=== PATIENT | male | born 1995 | race Caucasian/White ===

== ENCOUNTER 2017-11-29 19:01 | Emergency (ER) | payer OTHER ==
[~2017-11-29] VITALS: Ht 170.2 cm; Wt 72.6 kg
--- NOTE | 2017-11-29 19:56 | PHYS DOC ---
Adult General Chief Complaint Chief Complaint: HAND PROBLEM HPI HPI 22-year-old male presents with right hand pain. The patient was changing a tire when his hand slipped and he punched his right second and third digit into the asphalt. He has a small abrasion with minimal bleeding over the second metacarpal to plalanx joint. He had immediate pain and swelling. It it has continued to hurt all day and the swelling is not improved. The pain is 6 out of 10. He is concerned for fracture. He denies any other injuries or complaints. Review of Systems Review of Systems Constitutional: Denies fever or chills [] Eyes: Denies change in visual acuity, redness, or eye pain [] HENT: Denies nasal congestion or sore throat [] Respiratory: Denies cough or shortness of breath [] Cardiovascular: No additional information not addressed in HPI [] GI: Denies abdominal pain, nausea, vomiting, bloody stools or diarrhea [] : Denies dysuria or hematuria [] Musculoskeletal: Right hand pain[] Integument: Denies rash or skin lesions [] Neurologic: Denies headache, focal weakness or sensory changes [] Endocrine: Denies polyuria or polydipsia [] All other systems were reviewed and found to be within normal limits, except as documented in this note. Physical Exam Physical Exam Constitutional: Well developed, well nourished, no acute distress, non-toxic appearance. [] HENT: Normocephalic, atraumatic, bilateral external ears normal, oropharynx moist, no oral exudates, nose normal. [] Eyes: PERRLA, EOMI, conjunctiva normal, no discharge. [] Neck: Normal range of motion, no tenderness, supple, no stridor. [] Cardiovascular:Heart rate regular rhythm, no murmur [] Lungs & Thorax: Bilateral breath sounds clear to auscultation [] Abdomen: Bowel sounds normal, soft, no tenderness, no masses, no pulsatile masses. [] Skin: Warm, dry, no erythema, no rash. [] Back: No tenderness, no CVA tenderness. [] Extremities: Swelling of the right hand over the second metacarpal. Abrasion with formed scab in this location. Neurovascularly intact. Pain with ROM testing.[] Neurologic: Alert and oriented X 3, normal motor function, normal sensory function, no focal deficits noted. [] Psychologic: Affect normal, judgement normal, mood normal. [] EKG EKG [] Radiology/Procedures Radiology/Procedures [] Impressions: Right hand 3 views 11/29/2017. Reason for exam: Pain after injury this morning. Laceration. No fracture or dislocation is seen. There is no apparent foreign body. IMPRESSION: No apparent acute abnormality. Electronically signed by: Manoj Martinez Jr., MD (11/29/2017 8:12 PM) [facility] DICTATED AND SIGNED BY: MANOJ MARTINEZ Jr, MD DATE: 11/29/172009 CC: CT MCNEAL DO; PCP,DACIA ~ Course & Med Decision Making Course & Med Decision Making Pertinent Labs and Imaging studies reviewed. (See chart for details) The patient's x-rays negative for fracture. He does have some surrounding erythema with the laceration, I will give him Keflex prophylaxis since it was a dirty environment where he sustained the wound. [] Dragon Disclaimer Dragon Disclaimer This electronic medical record was generated, in whole or in part, using a voice recognition dictation system. Departure Departure: Referrals: PCP,DACIA (PCP) CT MCNEAL DO Nov 29, 2017 19:56
--- NOTE | 2017-11-29 20:16 | RAD ---
Right hand 3 views 11/29/2017. Reason for exam: Pain after injury this morning. Laceration. No fracture or dislocation is seen. There is no apparent foreign body. IMPRESSION: No apparent acute abnormality. Electronically signed by: Manoj Oseguera Jr., MD (11/29/2017 8:12 PM) [facility]
[2017-11-29] MEDS ORDERED: CEPH-264 PO (20:25)
[2017-11-29 20:30] VITALS: BP 139/62
[2017-11-29] MEDS ORDERED: CEPHALEXIN 250 MG CAPSULE PO ONE (20:30)
[2017-11-29] MEDS ORDERED: NAPROXEN 500 MG TABLET PO ONE (20:30)
== END 2017-11-29 20:40 | disposition home or self-care (01) ==
LOC: ER 19:01
DX: S61.210A Laceration without foreign body of right index finger without damage to nail, initial encounter (principal); W22.8XXA Striking against or struck by other objects, initial encounter; Y93.89 Activity, other specified; Y92.89 Other specified places as the place of occurrence of the external cause; Y99.8 Other external cause status
CPT/HCPCS: 73130; 99284

== ENCOUNTER 2019-12-08 11:59 | Emergency (ER) | payer OTHER ==
[~2019-12-08] VITALS: Ht 175.3 cm; Wt 79.5 kg
[~2019-12-08 11:59] MED LIST: CEPH-264 PO
--- NOTE | 2019-12-08 12:24 | PHYS DOC ---
Past History Past Medical History: No Pertinent History Past Surgical History: No Surgical History Alcohol Use: Rarely Drug Use: None General Adult EDM: Chief Complaint: SORE THROAT HPI: HPI: 24-year-old male past medical history of tobacco dependence presents the ED with complaints of sore throat for the past 6 days, left tonsil more painful than right. He was seen in urgent care clinic 3 days ago and was called back, covid test was negative, strep was negative. Was not started on any antibiotics by urgent care clinic. States he had a oral fever of 101.2 yesterday. C/o painful swallowing and left anterior neck fullness. ROS: Denies associated headache, neck stiffness, dyspnea, hemoptysis, orthopnea, chest pain or pressure, nausea, vomiting, diarrhea, abdominal pain, back pain, drooling, back pain, earache, trismus, raised tongue, drooling. Review of Systems: Review of Systems: Constitutional: Denies fever or chills Eyes: Denies change in visual acuity HENT: Denies nasal congestion or sore throat Respiratory: Denies cough or shortness of breath Cardiovascular: Denies chest pain or edema GI: Denies abdominal pain, nausea, vomiting, bloody stools or diarrhea : Denies dysuria Musculoskeletal: Denies back pain or joint pain Integument: Denies rash Neurologic: Denies headache, focal weakness or sensory changes Endocrine: Denies polyuria or polydipsia Lymphatic: Denies swollen glands Psychiatric: Denies depression or anxiety Allergies: Allergies: Allergies Coded Allergies Type Severity Reaction Last Updated Verified No Known Drug Allergies 11/29/17 No Physical Exam: PE: Constitutional: Well developed, well nourished, no acute distress, non-toxic appearance. [] HENT: Normocephalic, atraumatic, bilateral external ears normal, oropharynx bl exudates and erythema with large 2x1.5cm lefty tonsillith vs abscess, uvula midline, nose normal. [] no brawny texture to the floor of mouth or raise tongue Eyes: EOMI, conjunctiva normal, no discharge. [] Neck: Normal range of motion, no tenderness, supple, no stridor. [] Cardiovascular:Heart rate regular rhythm, no murmur [] Lungs & Thorax: Bilateral breath sounds clear to auscultation, no drooling/stridor/tripod positioning, Abdomen: Bowel sounds normal, soft, no tenderness, no masses, no pulsatile masses. [] Skin: Warm, dry, no erythema, no rash. [] Back: No tenderness, no CVA tenderness. [] Extremities: No tenderness, no cyanosis, no clubbing, ROM intact, no edema. [] Neurologic: Alert and oriented X 3, normal motor function, normal sensory function, no focal deficits noted. [] Psychologic: Affect normal, judgement normal, mood normal. [] EKG: EKG: [] Radiology/Procedures: Radiology/Procedures: IMAGING REPORT Signed PATIENT: MESSI STRICKLAND LACCOUNT: [id number] : 1995 LOCATION: ER AGE: 24 SEX: M EXAM STATUS: REG ER ORD. PHYSICIAN: RULA ESCAMILLA DO REASON: TONSIL SWELLING PROCEDURE: CT SOFT TISSUE NECK W/CONTRAST CT SOFT TISSUE NECK W/CONTRAST DATE: 12/08/2019 12:00 AM INDICATION: Reason: TONSIL SWELLING / Spl. Instructions: / History: TECHNIQUE: Axial computed tomography of the neck with intravenous contrast according to the standard neck protocol. 70 cc of iodinated contrast was administered intravenously. One or more of the following dose reduction techniques were utilized: Automated exposure control (AEC), Adjustment of mA and/or kV according to patient size, Use of iterative reconstruction technique such as ASiR, CT scan done according to ALARA and image gently/image wisely COMPARISON: None. FINDINGS: Marked enlargement of the left greater than right palatine tonsils with peripherally enhancing low-attenuation region within the left palatine tonsil measuring 1.8 x 1.4 x 1.4 cm. Moderate narrowing of the oropharynx. Enlarged bilateral cervical lymph nodes. The parotid, submandibular, and thyroid glands are normal. The muscles of the neck are normal. Vessels of the neck demonstrate normal course, caliber, and enhancement. The visualized aerodigestive tract is normal. The visualized posterior fossa and brain is unremarkable. The visualized orbits and paranasal sinuses are normal. The cervical spine is normal. The visualized lung apices are clear. IMPRESSION: 1. Enlargement of the left greater than right palatine tonsils with 1.8 cm low-attenuation peripherally enhancing region on the left concerning for abscess. 2. Bilateral cervical lymphadenopathy, likely reactive. 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 Topical benzocaine sprayed and local anesthesia w/1% lidocaine to left tonsil. I&D with aspiration performed w/18G needle, 1 attempt at superior, middle and inferior aspect of left tonsillar (respectfully-3 attempts total) with no purulent material expressed-did not go deeper than 1cm. Alligator forceps removed 2-3 cm granulation white tissue over lateral left tonsil- attempted to make in an incision with 18 G but no material was expressed.The p atients tetanus status is UTD. The patient tolerated the procedure Complications: Pain Course & Med Decision Making: Course & Med Decision Making Pertinent Labs and Imaging studies reviewed. 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 Rapid strep and mono screen are negative. IV fluids, unasyn and dexamethasone given in ED. Patient n.p.o.. Transferred to [facility] for ENT consultation and admission for IV antibiotics. Patient agrees with this plan was stable at time of transfer. Differential includes moses's angina, peritonsillar abscess, retropharyngeal abscess, epiglottitis, bacterial tracheitis, uvulitis, sepsis, mastoiditis, traumatic injury, I have spoken with the patient and/or caregivers. I have explained the patient's condition, diagnosis and treatment plan based on the information available to me at this time. I have answered the patient's and/or caregivers questions and answered any concerns. The patient and/or caregivers have as good an understanding of the patient's diagnosis, condition and treatment plan as can be expected at this point. The patient has been stabilized within the capability of the emergency department. The patient will be transported for further care and management or will be moved to an observation or inpatient service. I have communicated with the staff or medical practitioner taking over this patient's care. Dragon Disclaimer: Dragon Disclaimer: This electronic medical record was generated, in whole or in part, using a voice recognition dictation system. Departure Departure: Impression: Primary Impression: Sepsis Additional Impression: Peritonsillar abscess Disposition: ADMITTED INPATIENT (Accepted transfer to [facility], Dr. Cary) Condition: STABLE Referrals: PCP,NO (PCP) Justification of Admission: Justification of Admission: Justification of Admission Dx: No Sepsis: Infection RULA ESCAMILLA DO Dec 08, 2019 12:24
[2019-12-08] MEDS ORDERED: AMPICILLIN/SULBACTAM 3 GM in IV NORMAL SALINE 100ML 100 ML IV ONE (12:45)
[2019-12-08] MEDS ORDERED: IOHEXOL 300 MG/ML 75 ML VIAL. IV ONE (12:45)
[2019-12-08] MEDS ORDERED: BENZOCAINE ONE 20% MUCOSAL SPRAY. MM (13:10)
[2019-12-08 13:18] LABS: CALCIUM 9.4 mg/dL (8.5-10.1); CREATININE 1.1 mg/dL (0.7-1.3); GFR 83.7; POTASSIUM 4.1 mmol/L (3.5-5.1)
--- NOTE | 2019-12-08 13:18 | RAD ---
CT SOFT TISSUE NECK W/CONTRAST DATE: 12/08/2019 12:00 AM INDICATION: Reason: TONSIL SWELLING / Spl. Instructions: / History: TECHNIQUE: Axial computed tomography of the neck with intravenous contrast according to the standard neck protocol. 70 cc of iodinated contrast was administered intravenously. One or more of the following dose reduction techniques were utilized: Automated exposure control (AEC), Adjustment of mA and/or kV according to patient size, Use of iterative reconstruction technique such as ASiR, CT scan done according to ALARA and image gently/image wisely COMPARISON: None. FINDINGS: Marked enlargement of the left greater than right palatine tonsils with peripherally enhancing low-attenuation region within the left palatine tonsil measuring 1.8 x 1.4 x 1.4 cm. Moderate narrowing of the oropharynx. Enlarged bilateral cervical lymph nodes. The parotid, submandibular, and thyroid glands are normal. The muscles of the neck are normal. Vessels of the neck demonstrate normal course, caliber, and enhancement. The visualized aerodigestive tract is normal. The visualized posterior fossa and brain is unremarkable. The visualized orbits and paranasal sinuses are normal. The cervical spine is normal. The visualized lung apices are clear. IMPRESSION: 1. Enlargement of the left greater than right palatine tonsils with 1.8 cm low-attenuation peripherally enhancing region on the left concerning for abscess. 2. Bilateral cervical lymphadenopathy, likely reactive. Electronically signed by: Octaviano Dyer MD (12/08/2019 1:15 PM) [id number]
[2019-12-08 13:19] LABS: BASO % 0 % (0-3); EOS # 0.1 x10^3/uL (0.0-0.7); EOS % 0 % (0-3); HEMATOCRIT 48.9 % (39.0-53.0); HEMOGLOBIN 16.5 g/dL (13.0-17.5); LYMPH % 5 % (24-48); MEAN CORPUSCULAR HEMOGLOBIN 33 pg (25-35); MEAN CORPUSCULAR HGB CONC 34 g/dL (31-37); MEAN CORPUSCULAR VOLUME 97 fL (79-100); MONO % 11 % (0-9); NEUT # 15.7 x10^3uL (1.8-7.7); NEUT % 84 % (31-73); PLATELET COUNT 282 x10^3/uL (140-400); RED BLOOD COUNT 5.03 x10^6/uL (4.30-5.70); WHITE BLOOD COUNT 18.7 x10^3/uL (4.0-11.0)
[2019-12-08 13:21] LABS: MONONUCLEOSIS PATIENT NEGATIVE (NEGATIVE)
[2019-12-08 13:42] LABS: % BANDS 14 % (0-9); % LYMPHS 3 % (24-48); % METAS 1 % (0-0); % MONOS 10 % (0-10); % SEGS 72 % (35-66)
[2019-12-08] MEDS ORDERED: KETAMINE HCL 500 MG/10 ML VIAL. ONE (13:42)
[2019-12-08 13:46] LABS: PLT ESTIMATE ADEQUATE (ADEQUATE); TOXIC GRANULATION PRESENT; TOXIC VACUOLATION PRESENT
[2019-12-08] MEDS ORDERED: KETAMINE HCL IN NACL, ISO-OSM 50 MG/5 ML SYRINGE IV ONE (14:00)
[2019-12-08] MEDS ORDERED: IV NORMAL SALINE 1,000ML 1,000 ML IV ONE ×2 (15:00)
[2019-12-08] MEDS ORDERED: DEXAMETHASONE 4 MG TABLET PO ONE (16:30)
[2019-12-08] MEDS ORDERED: HYDROmorphone PF 1 MG/ML DISP.SYRIN IV ONE ×2 (16:30→18:00)
[2019-12-08] MEDS ORDERED: DEXAMETHASONE SOD PHOS 10 MG/ML VIAL. ONE (16:33)
[2019-12-08] MEDS ORDERED: DEXAMETHASONE SOD PHOS 10 MG/ML VIAL. IV ONE (16:45)
[2019-12-08 16:54] VITALS: BP 115/70
== END 2019-12-08 17:50 | disposition other institution (70) ==
LOC: ER 11:59
DX: A41.9 Sepsis, unspecified organism (principal); J36 Peritonsillar abscess; Z87.891 Personal history of nicotine dependence
CPT/HCPCS: 36415; 42700; 70491; 80048; 85007; 85025; 86308; 87070; 87880; 96365; 96375; 96376; 99285; J0295; J1100; J1170; J3010; J7030; Q9967; 10021; 96360

== ENCOUNTER 2021-04-01 10:06 | Emergency (ER) | payer OTHER ==
[~2021-04-01] VITALS: Ht 175.3 cm; Wt 80.0 kg
[2021-04-01] MEDS ORDERED: IBUPROFEN 600 MG TABLET. PO ONE (10:45)
--- NOTE | 2021-04-01 11:05 | PHYS DOC ---
Past History Past Medical History: No Pertinent History (JARED GARCIA APRN) Past Surgical History: Tonsillectomy (JARED GARCIA APRN) Additional Smoking Information: 1/2 PACK Alcohol Use: Occasionally Drug Use: None (JARED GARCIA APRN) Adult General Chief Complaint Chief Complaint: KNEE INJURY HPI HPI Patient is a 26-year-old male who presents emergency department complaining of right knee pain, patient reports yesterday at approximately noon he was running when he stepped into a hole and felt his right knee pop. Patient reports falling to the ground and needed assistance to stand and ambulate back to his home. Patient reports he has been applying ice packs, elevating, and wearing a knee compression garment with minimal relief in pain. Patient denies taking oral pain medications. Denies numbness or tingling to his right leg. Reports mild swelling to the inner part of his right knee. Reports 10 out of 10 knee pain when trying to bend his knee. Denies other physical complaints or physical concerns. (JARED GARCIA APRN) Review of Systems Review of Systems 14 body systems of review of systems have been reviewed. See HPI for pertinent positives and negative responses, otherwise all other systems are negative, nonpertinent or noncontributory. Constitutional: Negative except as outlined in HPI above. Skin: Negative except as outlined in HPI above. Eyes: Negative except as outlined in HPI above. HENT: Negative except as outlined in HPI above. Respiratory: Negative except as outlined in HPI above. Cardiovascular: Negative except as outlined in HPI above. GI: Negative except as outlined in HPI above. : Negative except as outlined in HPI above. Musculoskeletal: Negative except as outlined in HPI above. Integument: Negative except as outlined in HPI above. Neurologic: Negative except as outlined in HPI above. Endocrine: Negative except as outlined in HPI above. Lymphatic: Negative except as outlined in HPI above. Psychiatric: Negative except as outlined in HPI above. (JARED GARCIA APRN) Current Medications Current Medications Current Medications Medications (Trade) Dose Ordered Sig/Sunil Start Time Stop Time Status Last Admin Dose Admin Ibuprofen (Motrin) 600 mg 1X ONCE 04/01/21 10:45 04/01/21 10:46 DC 04/01/21 10:48 600 MG (JARED GARCIA APRN) Allergies Allergies Allergies Coded Allergies Type Severity Reaction Last Updated Verified No Known Drug Allergies 11/29/17 No (JARED GARCIA APRN) Physical Exam Physical Exam Constitutional: Well developed, well nourished, no acute distress, non-toxic appearance. 26-year-old male in no apparent distress. HENT: Normocephalic, atraumatic. Eyes: Conjunctiva normal, no discharge. Neck: Normal range of motion, no stridor. Cardiovascular: No cyanosis appreciated, distal cap refill less than 2 seconds. Lungs & Thorax: Patient is in no respiratory distress, no audible adventitious lung sounds appreciated. Abdomen: Nontender, no abnormalities noted. Skin: Warm, dry, no erythema, no rash. Back: No tenderness, no deformities. Extremities: No tenderness, no cyanosis, no clubbing, ROM intact, no edema. Except for right knee, patient presents with new compression garment, garment removed for examination, mild swelling to medial aspect knee, limited passive range of motion related to pain, unable to complete knee stability testing related to patient's pain response during passive flexion of the joint. Distal cap refill is less than 2 seconds, 2+ dorsalis pedis pulse. No deformity appreciated. Neurologic: Alert and oriented X 3, normal motor function, normal sensory function, no focal deficits noted. Psychologic: Affect normal, judgement normal, mood normal. (JARED GARCIA APRN) Current Patient Data Vital Signs Vital Signs Date Time Temp Pulse Resp B/P (MAP) Pulse Ox O2 Delivery O2 Flow Rate FiO2 04/01/21 10:20 98.4 84 20 135/84 (101) 99 Room Air (JARED GARCIA APRN) EKG EKG [] (JARED GARCIA APRN) Radiology/Procedures Radiology/Procedures REASON: Right knee pain after stepping into a hole while running PROCEDURE: KNEE RIGHT 4V XR KNEE 4 VIEWS WITH PATELLA_RT 04/01/2021 10:40 AM INDICATION: Right knee pain after stepping into a hole while running COMPARISON: None available. TECHNIQUE: 4 views of the right knee are provided. FINDINGS/ IMPRESSION: No significant knee joint effusion. There is no acute fracture or dislocation. Joint spaces are maintained. Bone mineralization is within normal limits. Regional soft tissues are within normal limits. There is no soft tissue gas or osseous erosion. No radiopaque foreign body. Electronically signed by: Marlin Talley MD (04/01/2021 11:30 AM) [id number] (JARED GARCIA APRN) Heart Score C/O Chest Pain: No Risk Factors: Risk Factors: DM, Current or recent (<one month) smoker, HTN, HLP, family history of CAD, obesity. Risk Scores: Risk Factors: DM, Current or recent (<one month) smoker, HTN, HLP, family history of CAD, obesity. (JARED GARCIA APRN) Course & Med Decision Making Course & Med Decision Making Pertinent Labs and Imaging studies reviewed. (See chart for details) 26-year-old male, vital signs reviewed, presents to the emergency department concerning right knee pain after stepping in a hole while running. Physical examination concerning for possible acute bony knee injury versus ligamentous/tendon strain versus internal ligamentous/tendon disruption. Will order ice packs, right knee x-ray, p.o. pain medication. Patient is asking for work excuse. X-ray negative for acute fracture, discussed findings with patient, discussed RICE therapy, will order knee immobilizer with crutches, give work excuse. Strict follow-up with primary care this week, will provide information for local primary care provider, discussed follow-up with orthopedist for ongoing pain. Patient given a work excuse, patient gave verbal understanding of and is amenable to ED discharge planning. Discussed with the patient all findings and diagnostic testing as well as the need to follow-up with their primary care provider for further evaluation and treatment or return to the ED if any new or worsening symptoms. Strict return precautions were also discussed at length, the patient voiced understanding and agreement with the discharge planning. The patient was nontoxic in appearance, in no apparent distress, and hemodynamically stable at the time of disposition. (JARED GARCIA APRN) Dragon Disclaimer Dragon Disclaimer This electronic medical record was generated, in whole or in part, using a voice recognition dictation system. (JARED GRACIA APRN) Attending Co-Sign The patient was seen and interviewed as well as examined at the bedside. The chart was reviewed. The case was discussed. Agree with the plan of care. (CT MCNEAL DO) Departure Departure: Impression: Primary Impression: Right knee sprain Disposition: HOME / SELF CARE / HOMELESS Condition: GOOD Referrals: PCP,NO (PCP) Patient Instructions: Crutch Use, Knee Sprain, Knee Wraps (Elastic Bandage) and RICE Additional Instructions: You are seen today in the emergency department for right knee pain after stepping into a hole while running. Your x-rays did not show any concerning findings for fracture, this is most likely a sprain of one of the ligaments to your knee. Please use your knee compression garment, a knee immobilizer has been placed for comfort, use crutches as needed for pain. Please follow-up with your primary care physician soon for reevaluation of your knee injury. You had indicated you do not have a primary care physician, please consider using the [facility] located at [facility] [place] [id number] [address] [place] [id number], their telephone number is area code [phone]. Please call today or tomorrow for the earliest appointment. For ongoing knee discomfort please fol low-up with a retirement benefits specialist as this knee injury may require an MRI for further investigation. Use ice to the sore knee 30 minutes on and 30 minutes off while awake. I have attached RICE therapy instructions which is an acronym for rest, ice, compression, elevation. You may use [id number] NSAID medication such as Naprosyn or ibuprofen for ongoing pain.. Thank you for visiting our Emergency Department. It was a pleasure taking care of you today in the emergency department and we appreciate you trusting us with your care. If any additional problems come up don't hesitate to return to visit us. Please follow up with your primary care provider so they can plan additional care if needed and know about the problem that you had. If symptoms worsen come back to the Emergency Department. Any concerning symptoms that start such as chest pain, shortness of air, weakness or numbness on one side of the body, running high fevers or any other concerning symptoms return to the ER. EMERGENCY DEPARTMENT GENERAL DISCHARGE INSTRUCTIONS Thank you for coming to [facility] (ED) today and trusting us with you care. We trust that you had a positivie experience in our Emergency Department. If you wish to speak to the department management, you may call the director at [phone]. YOUR FOLLOW UP INSTRUCTIONS ARE FOLLOWS: 1. Do you have a private Doctor? If you do not have a private doctor, please ask for a resource list of physicians or clinics that may be able to assist you with fol low up care. 2. The Emergency Physician has interpreted your x-rays. The X-Ray specialist will also review them. If there is a change in the findings, you will be notified in 48 hours when at all possible. 3. A lab test or culture has been done, your results will be reviewed and you will be notified if you need a change in treatment. ADDITIONAL INSTRUCTIONS AND INFORMATION: 1. Your care today has been supervised by a physician who is specially trained in emergency care. Many problems require more than one evaluation for a complete diagnosis and treatment. We recommend that you schedule your follow up appointment as r ecommended to ensure complete treatment of you illness or injury. If you are unable to obtain follow up care and continue to have a problem, or if your condition worsens, we recommend that you return to the ED. 2. We are not able to safely determine your condition over the phone nor are we able to give sound medical advice over the phone. For these safety reasons, if you call for medical advice we will ask you to come to the ED for further evaluation. 3. If you have any questions regarding these discharge instructions please call the ED at [phone]. SAFETY INFORMATION: In the interest of safety, wellness, and injury prevention; we encourage you to wear your sealbelt, if you smoke; quite smoking, and we encourage family to use a protective helmet for bicycling and other sporting events that present an increased risk for head injury. IF YOUR SYMPTOMS WORSEN OR NEW SYMPTOMS DEVELOP, OR YOU HAVE CONCERNS ABOUT YOUR CONDITION; OR IF YOUR CONDITION WORSENS WHILE YOU ARE WAITING FOR YOUR FOLLOW UP APPOINTMENT; EITHER CONTACT YOUR PRIMARY CARE DOCTOR, THE PHYSICIAN WHOSE NAME AND NUMBER YOU WERE GIVEN, OR RETURN TO THE ED IMMEDIATELY. Problem Qualifiers Primary Impression: Right knee sprain Encounter type: initial encounter Involved ligament of knee: unspecified ligament Qualified Codes: S83.91XA - Sprain of unspecified site of right knee, initial encounter JARED GARCIA APRN Apr 01, 2021 11:05 CT MCNEAL DO Apr 03, 2021 10:51
--- NOTE | 2021-04-01 11:32 | RAD ---
XR KNEE 4 VIEWS WITH PATELLA_RT 04/01/2021 10:40 AM INDICATION: Right knee pain after stepping into a hole while running COMPARISON: None available. TECHNIQUE: 4 views of the right knee are provided. FINDINGS/ IMPRESSION: No significant knee joint effusion. There is no acute fracture or dislocation. Joint spaces are maint ained. Bone mineralization is within normal limits. Regional soft tissues are within normal limits. T here is no soft tissue gas or osseous erosion. No radiopaque foreign body. Electronically signed by: Marlin Talely MD (04/01/2021 11:30 AM) [id number]
[2021-04-01 11:35] VITALS: BP 141/80
== END 2021-04-01 11:38 | disposition home or self-care (01) ==
LOC: ER 10:06
DX: S83.91XA Sprain of unspecified site of right knee, initial encounter (principal); F17.200 Nicotine dependence, unspecified, uncomplicated; W18.39XA Other fall on same level, initial encounter; Y93.02 Activity, running; Y92.89 Other specified places as the place of occurrence of the external cause; Y99.8 Other external cause status
CPT/HCPCS: 29505; 73564; 99283